=== PATIENT | male | born 1980 | race Caucasian/White ===

== ENCOUNTER 2019-09-14 07:23 | Day surgery (SDC) | payer OTHER ==
[~2019-09-14] VITALS: Ht 180.3 cm; Wt 87.5 kg
[~2019-09-14 07:23] MED LIST: LR 1,000 ML IV ONE; dexameTHASONE 4 MG/ML 1ML VIAL (J1100) IV ONE
[2019-09-14] MEDS ORDERED: fentaNYL 100 MCG/2 ML INJECTION (J3010) As Ordered ONE ×2 (08:45→10:00)
[2019-09-14] MEDS ORDERED: MIDAZOLAM INJ 2 MG/2 ML VIAL (J2250) As Ordered ONE (08:46)
[2019-09-14] MEDS ORDERED: propofoL 200 MG/20 ML VIAL As Ordered ONE (08:47)
[2019-09-14] MEDS ORDERED: dexameTHASONE 4 MG/ML 1ML VIAL (J1100) As Ordered ONE ×2 (08:47→09:08)
[2019-09-14] MEDS ORDERED: LIDOCAINE 2% INJ 100 MG/5 ML SDV (FOR ANES.) As Ordered ONE (08:47)
[2019-09-14] MEDS ORDERED: ROCURONIUM BROMIDE 50 MG/5 ML VIAL As Ordered ONE (08:47)
[2019-09-14] MEDS ORDERED: ONDANSETRON 4MG/2ML VIAL (J2405) As Ordered ONE (08:47)
[2019-09-14] MEDS ORDERED: SODIUM CHLORIDE 0.9% NASAL GEL 15GM (AYR) As Ordered ONE (08:50)
[2019-09-14] MEDS ORDERED: LIDOCAINE W/EPINEPHRINE 1% 20ML VIAL As Ordered ONE (08:51)
[2019-09-14] MEDS ORDERED: EPINEPHrine 1MG/ML INJ 30ML MD-VIAL As Ordered ONE ×2 (08:51→10:06)
[2019-09-14] MEDS ORDERED: METHYLENE BLUE 0.5% (5MG/ML) 10 ML AMP (PROVAYBLUE)(Q9968 PER 1MG) As Ordered ONE (08:51)
[2019-09-14] MEDS ORDERED: SUGAMMADEX SODIUM 500 MG/5 ML VIAL (BRIDION) As Ordered ONE (09:36)
[2019-09-14] MEDS ORDERED: ACETAMINOPHEN 1000MG 100ML IV BTL (OFIRMEV) (J0131 PER 10MG) As Ordered ONE (09:47)
[2019-09-14] MEDS ORDERED: ONDANSETRON 4MG/2ML VIAL (J2405) IV PRN (11:00)
[2019-09-14] MEDS ORDERED: LR 1,000 ML IV SCH ×2 (11:00)
[2019-09-14] MEDS ORDERED: fentaNYL 100 MCG/2 ML INJECTION (J3010) IV PRN (11:00)
[2019-09-14] MEDS: oxyCODONE 5MG TAB PO PRN ×2 (11:40→13:33)
[2019-09-14] MEDS ORDERED: TETRAHYDROZOLINE OPHTH 0.05% 15 ML BTL OU ONE (12:00)
[2019-09-14 13:25] VITALS: BP 130/67
[2019-09-14] MEDS ORDERED: oxyCODONE 5MG TAB As Ordered ONE (13:32)
== END 2019-09-14 14:02 | disposition home or self-care (01) ==
LOC: M SDC 07:23
PROVIDERS: ATTEND Otolaryngology
DX: J34.2 Deviated nasal septum (principal); G47.30 Sleep apnea, unspecified
CPT/HCPCS: 30520; 88300; J0131; J1100; J2250; J2405; J3010; Q9968

== ENCOUNTER → 2023-07-12 | Outpatient (CLI) | payer OTHER | LOC: M RAD 14:21 | PROVIDERS: ATTEND Physician Assistant | DX: R06.00 Dyspnea, unspecified (principal) ==

== ENCOUNTER → 2023-11-21 | Outpatient (CLI) | payer OTHER | LOC: M SLEEP 20:00 | PROVIDERS: ATTEND Physician Assistant | DX: R06.83 Snoring (principal) ==